=== PATIENT | male | born 1985 ===

== ENCOUNTER 2023-11-07 06:39 | Day surgery (SDC) | payer OTHER, SELFPAY ==
[2023-10-18 08:30] VITALS: BMI 33.6
[2023-10-23 08:38] VITALS: BMI 32.3
--- NOTE | 2023-11-07 07:15 | WPDANESEPPF ---
Anes - Initial Pre Proc Eval Procedure: Operation Date: 11/07/23 09:00 Proposed Procedures p Diagnostic Colonoscopy - Gideon Redd MD Date/Time: 11/07/23 07:15 Surgeon: Gideon Redd MD Pre Op Diagnosis: Hemorrhage of anus and rectum Patient Data Age: 38 Gender: M Height: 1.78 m Weight: 102.3 kg Allergies Allergy/AdvReac Type Severity Reaction Status Date / Time No Known Allergies Allergy Unknown Verified 11/07/23 07:58 Patient hx anesthesia problems: none Family hx anesthesia problems: none Results Review: All pre-operative results and documents have been reviewed as part of the pre-operative evaluation. [facility] Past Medical History Medical History (Updated 11/07/23 @ 07:17 by Erik Aguirre DO) Bright red blood per rectum GERD (gastroesophageal reflux disease) Family History Family History (Updated 05/29/18 @ 14:23 by DOCTOR UNKNOWN) Other Diabetes mellitus Family history of arthritis Family history of malignant neoplasm Hypertension Social History Social History Smoking status: Never smoker Alcohol intake: current Alcohol use details: occasional Substance use type: does not use Living arrangements: with family Spiritual care concerns: No Anes - Eval Final PreProcedure Day of Procedure 11/07/23 07:15 Patient weight: obese Heart: regular rate and rhythm Lungs: clear to auscultation Airway: Mallampati scale class II Neurological: alert and oriented Last oral intake: >/= 8 hours ASA classification: II Emergent: no Anesthetic plan: proceed Anesthesia type and monitoring: general GIVS and standard monitoring Results Review: All pre-operative results and documents have been reviewed as part of the pre-operative evaluation. Informed Consent: The patient's anesthetic plan and its attendant risks and benefits were discussed with the patient/family/POA. Questions were solicited and answers provided to the satisfaction of the patient/family/POA.
[2023-11-07 08:05] VITALS: BP 130/95; PULSE 84; RESP 18; TEMP 36.7; O2SAT 98; BMI 32.2
--- NOTE | 2023-11-07 08:33 | WPDHPUPDATE1 ---
History and Physical Update Update Date/Time: 11/07/23 08:33 History and Physical has been reviewed, including an updated exam of the patient. There are NO changes in the patient's condition. Risks, benefits, and alternatives have been discussed and questions answered. Patient agrees to proceed with procedure.
[2023-11-07] MEDS: LACTATED RINGERS 1,000 ML 150 ML IV CONT (08:40)
[2023-11-07 09:12] VITALS: BP 127/84; PULSE 68; RESP 18; O2SAT 96
[2023-11-07 09:22] VITALS: BP 126/88; PULSE 68; RESP 18; O2SAT 96
[2023-11-07 09:30] VITALS: BP 127/84; PULSE 78; RESP 16; O2SAT 96
--- NOTE | 2023-11-07 12:28 | WPDANESPN ---
Anes - Prog Note Post-Op Date/Time: 11/07/23 12:28 Cardiovascular status: normal Respiratory status: normal Airway patency: baseline Mental status: baseline Post-Op hydration status: normal Vital Signs: Last Vital Signs Temp 36.7 C 11/07/23 08:05 Pulse 78 11/07/23 09:30 Resp 16 11/07/23 09:30 BP 127/84 11/07/23 09:30 Pulse Ox 96 11/07/23 09:30 O2 Del Method Room Air 11/07/23 09:30 Pain Score (VAS): 0 I/O: Intake & Output 11/06/23 11/07/23 11/07/23 23:59 07:59 15:59 Intake Total 50 Balance 50 Post-procedural complaints: none Patient Feedback: Patient satisfied with anesthetic care. Other Findings: Patient vital signs back to baseline. Patient denies nausea and vomiting. Patient's pain under control. Patient OK for discharge.
== END 2023-11-07 09:40 | disposition home or self-care (01) ==
PROVIDERS: PCP Family Medicine; Visit Provider Internal Medicine Gastroenterology
PROC: 0DJD8ZZ Inspection of Lower Intestinal Tract, Via Natural or Artificial Opening Endoscopic (ICD-10-PCS; CPT 45378; principal; 2023-11-07 09:00)
DX: Z12.11 Encounter for screening for malignant neoplasm of colon (principal); K57.30 Diverticulosis of large intestine without perforation or abscess without bleeding; K62.5 Hemorrhage of anus and rectum; K64.8 Other hemorrhoids
CPT/HCPCS: 45378